=== PATIENT | female | born 2000 | race Caucasian/White ===

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

== ENCOUNTER 2021-03-16 16:41 | Emergency (ER) | payer OTHER, MEDICAID, SELFPAY ==
[2021-03-16 16:53] VITALS: BP 121/68; PULSE 103; RESP 18; TEMP 37.1; O2SAT 95; BMI 19.2
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
[2021-03-16] MEDS: predniSONE 20 MG TABLET 40 MG PO (20:01)
[2021-03-16] MEDS: diphenhydrAMINE 25 MG TABLET PO (20:01)
== END 2021-03-16 20:05 | disposition home or self-care (01) ==
PROVIDERS: Emergency Provider Emergency Medicine
DX: R21 Rash and other nonspecific skin eruption (principal); T78.40XA Allergy, unspecified, initial encounter
CPT/HCPCS: 99283

== ENCOUNTER 2021-07-08 10:40 | Emergency (ER) | payer OTHER, MEDICAID, SELFPAY ==
[2021-07-08 11:00] VITALS: BP 134/83; PULSE 93; RESP 16; TEMP 36; O2SAT 98; BMI 19.7
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
[2021-07-08 11:50] VITALS: BP 134/83; PULSE 85; RESP 16; TEMP 36.8
== END 2021-07-08 11:51 | disposition home or self-care (01) ==
PROVIDERS: Emergency Provider Emergency Medicine
DX: R52 Pain, unspecified (principal); V89.2XXA Person injured in unspecified motor-vehicle accident, traffic, initial encounter
CPT/HCPCS: 99281